=== PATIENT | male | born 1955 | race Caucasian/White ===

== ENCOUNTER 2016-08-29 10:46 | Inpatient (IN) | payer OTHER ==
[2016-08-29 13:04] VITALS: BMI 19.8
--- NOTE | 2016-08-29 13:43 | HP ---
COWS - Scale Resting Pulse: 1= [place] 81-100 Sweatin= Chills/Flushing Restless Observation: 1= Difficult to Sit Still Pupil Size: 1= Pupils >than Normal Bone or Joint Aches: 1= Mild Discomfort Runny Nose/ Eye Tearin= Nasal Congestion GI Upset > 30mins: 2= Nausea/Diarrhea Tremor Observation: 1= Tremor [place], Not Seen Yawning Observation: 0= None Anxiety or Irritability: 2=Irritable/Anxious Goose Flesh Skin: 0=Smooth Skin COWS Score: 11 CIWA Score - CIWA Score Nausea/Vomitin Muscle Tremors: 2 Anxiety: 3 Agitation: 2 Paroxysmal Sweats: 3 Orientation: 0-Oriented Tacttile Disturbances: 1-Very Mild Itch/Numbness Auditory Disturbances: 0-None Visual Disturbances: 0-None Headache: 0-None Present CIWA-Ar Total Score: 14 Admission ROS BHS - HPI Chief Complaint: i need help to get off drugs Allergies/Adverse Reactions: Allergies Allergy/AdvReac Type Severity Reaction Status Date / Time No Known Allergies Allergy Verified 08/29/16 13:29 History of Present Illness: 61 y/o m pt with a h/o heroin dep , chronic etoh and xanax abuse Exam Limitations: No Limitations - Ebola screening Have you traveled outside of the country in the last 21 days: No Have you had contact with anyone from an Ebola affected area: No Have you been sick,other than usual withdrawal symptoms: No Do you have a fever: No - Review of Systems Constitutional: Malaise, Unintentional Wgt. Loss (40 lbs x 1 yr) EENT: reports: Dental Problems (multiple missing teeth) Respiratory: reports: No Symptoms reported Cardiac: reports: No Symptoms Reported GI: reports: Diarrhea : reports: No Symptoms Reported Musculoskeletal: reports: No Symptoms Reported, Other (hand contractures) Integumentary: reports: Other (grafts) Neuro: reports: No Symptoms reported, Weakness Endocrine: reports: No Symptoms Reported Hematology: reports: No Symptoms Reported Psychiatric: reports: No Sypmtoms Reported Other Systems: Reviewed and Negative Patient History - Patient Medical History Hx Anemia: No Hx Asthma: No Hx Chronic Obstructive Pulmonary Disease (COPD): No Hx Cancer: No Hx Cardiac Disorders: No Hx Congestive Heart Failure: No Hx Hypertension: No Hx Hypercholesterolemia: No Hx Pacemaker: No HX Cerebrovascular Accident: No Hx Seizures: No Hx Diabetes: No Hx Gastrointestinal Disorders: No Hx Liver Disease: No Hx Genitourinary Disorders: No Hx Sexually Transmitted Disorders: No Hx Renal Disease (ESRD): No Hx Thyroid Disease: No Hx Human Immunodeficiency Virus (HIV): No (NEGATIVE HX) Hx Hepatitis C: Yes (STARTING TREATMENT AFTER THIS DETOX) Hx Depression: Yes Hx Suicide Attempt: No Hx Bipolar Disorder: No Hx Schizophrenia: No Other Medical History: s/p do with multiple skin grafts - Patient Surgical History Past Surgical History: Yes Hx Neurologic Surgery: No Hx Cataract Extraction: No Hx Cardiac Surgery: No Hx Lung Surgery: No Hx Breast Surgery: No Hx Breast Biopsy: No Hx Abdominal Surgery: No Hx Appendectomy: No Hx Cholecystectomy: No Hx Genitourinary Surgery: No Hx Section: No Hx Orthopedic Surgery: No Other Surgical History: skin grafting/do hands chest and legs in 2006 low back sx in 1999 Anesthesia Reaction: No - PPD History Previous Implant?: Yes Documented Results: Positive w/o proof Implanted On Prior R Admission?: No - Smoking Cessation Smoking history: Current every day smoker Have you smoked in the past 12 months: Yes Aproximately how many cigarettes per day: 20 Hx Chewing Tobacco Use: No Initiated information on smoking cessation: Yes 'Breaking Loose' booklet given: 08/29/16 - Substances Abused Heroin Route: Inhalation Frequency: Daily Amount used: 20 bags Age of first use: 44 Date of Last Use: 08/28/16 Cocaine Route: Inhalation Frequency: Daily Amount used: $20 Age of first use: 44 Date of Last Use: 08/28/16 Alcohol Route: Oral Frequency: Daily Amount used: 1 pint vodka Age of first use: 18 Date of Last Use: 08/28/16 Alprazolam (Xanax) Route: Oral Frequency: 3-6 times per week Amount used: 2mg Age of first use: 44 Date of Last Use: 08/28/16 Family Disease History - Family Disease History Family Disease History: Diabetes: Mother (HTN), Heart Disease: Father ([place]), Mother Admission Physical Exam BHS - Vital Signs Vital Signs: Vital Signs - 24 hr 08/29/16 13:00 Temperature 97.4 F L Pulse Rate 81 Respiratory 18 Rate Blood Pressure 123/72 61 y/o m pt aox3 appearing ill, ambulating but nad , cooperative with exam - Physical General Appearance: Yes: Disheveled HEENTM: Yes: EOMI, Hearing grossly Normal, DIVYA, Rhinorrhea, Muffled/Hoarse Voice, Other (bi-temp wasting) Respiratory: Yes: Chest Non-Tender, Lungs Clear, Normal Breath Sounds, No Respiratory Distress Neck: Yes: Supple Breast: Yes: Surgical Scar (skin grafts well healed) Cardiology: Yes: Regular Rhythm, Regular Rate, S1, S2 Abdominal: Yes: Non Tender, Flat, Soft, Increased Bowel Sounds Genitourinary: Yes: Within Normal Limits Back: Yes: Decreased Range of Motion Musculoskeletal: Yes: Joint Stiffness, Other (contractures) Extremities: Yes: Tremors 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, Fully Oriented, Alert, Depressed Affect Integumentary: Yes: Moist Lymphatic: Yes: Within Normal Limits - Diagnostic (1) Alcohol dependence Current Visit: No Status: Acute (2) Cocaine dependence Current Visit: Yes Status: Chronic Qualifiers: Substance use status: uncomplicated Qualified Code(s): F14.20 - Cocaine dependence, uncomplicated (3) Hepatitis C Current Visit: Yes Status: Chronic Qualifiers: Viral hepatitis chronicity: chronic Hepatic coma status: without hepatic coma Qualified Code(s): B18.2 - Chronic viral hepatitis C (4) Heroin dependence Current Visit: Yes Status: Chronic (5) Depression Current Visit: Yes Status: Chronic Qualifiers: Depression Type: unspecified Qualified Code(s): F32.9 - Major depressive disorder, single episode, unspecified (6) Nicotine dependence Current Visit: Yes Status: Chronic Qualifiers: Nicotine product type: cigarettes Substance use status: uncomplicated Qualified Code(s): F17.210 - Nicotine dependence, cigarettes, uncomplicated (7) H/O skin graft Current Visit: Yes Status: Chronic Cleared for Admission S - Detox or Rehab [facility] Level of Care: Medically Managed Detox Regimen/Protocol: Methadone/Valium S Breath Alcohol Content Breath Alcohol Content: 0 Urine Drug Screen - Results Drug Screen Negative: No Urine Drug Screen Results: FLIP-Cocaine, OPI-Opiates, BZO-Benzodiazepines, MTD- Methadone
[2016-08-29] MEDS ORDERED: MENTHOL/PHENOL 1 EACH UD MM PRN (14:03)
[2016-08-29] MEDS ORDERED: IBUPROFEN 400 MG TABLET (FP) PO PRN (14:03)
[2016-08-29] MEDS ORDERED: MAGNESIUM CITRATE 300 ML BOTTLE PO PRN (14:03)
[2016-08-29] MEDS ORDERED: LOPERAMIDE HCL 2 MG CAPSULE PO PRN (14:03)
[2016-08-29] MEDS ORDERED: MAG HYDROX/AL HYDROX/SIMETH 30 ML UNIT-DOSE CUP PO PRN (14:03)
[2016-08-29] MEDS ORDERED: P-EPHED 60MG/TRIPROLIDI 2.5MG TABLET PO PRN (14:03)
[2016-08-29] MEDS ORDERED: MAGNESIUM HYDROX 2400MG/30ML ORAL SUSPENSION 30 ML CUP PO PRN (14:03)
[2016-08-29] MEDS ORDERED: NICOTINE POLACRILEX 4 MG GUM BUC PRN (14:08)
[2016-08-29] MEDS ORDERED: diazePAM 5 MG TABLET PO ONE (15:20)
[2016-08-29] MEDS ORDERED: METHADONE HCL 10 MG TABLET (FOR DETOX USE ONLY) PO ONE ×2 (15:20→23:00)
[2016-08-29 17:08] LABS: URINE APPEARANCE CLEAR; URINE BILIRUBIN NEGATIVE (NEGATIVE); URINE BLOOD NEGATIVE (NEGATIVE); URINE COLOR YELLOW; URINE GLUCOSE (UA) NEGATIVE (NEGATIVE); URINE KETONE NEGATIVE (NEGATIVE); URINE LEUK ESTERASE NEGATIVE (NEGATIVE); URINE NITRITE NEGATIVE (NEGATIVE); URINE PROTEIN NEGATIVE (NEGATIVE); URINE UROBILINOGEN NEGATIVE E.U./dl (0.2-1.0)
[2016-08-29] MEDS: THIAMINE HCL 100 MG TABLET (FP) PO SCH (22:56)
[2016-08-29] MEDS: diphenhydrAMINE HCL 50 MG CAPSULE PO PRN (22:56)
[2016-08-29] MEDS: diazePAM 5 MG TABLET PO SCH (22:56)
[2016-08-30] MEDS: diazePAM 5 MG TABLET PO SCH ×3 (05:31→22:35)
[2016-08-30 09:30] LABS: MCH 29.6 pg (25.7-33.7); MCHC 33.1 g/dl (32.0-35.9); MEAN CELL VOLUME 89.6 fl (80-96); MEAN PLT VOLUME 9.6 fl (7.5-11.1); PLATELET COUNT 213 K/MM3 (134-434); RDW 14.6 % (11.9-15.9); WHITE BLOOD COUNT 7.8 K/mm3 (4.0-10.0)
[2016-08-30] MEDS ORDERED: METHADONE HCL 10 MG TABLET (FOR DETOX USE ONLY) PO SCH (10:00)
[2016-08-30 10:51] LABS: ALBUMIN 3.1 g/dl (3.4-5.0); ALK PHOS 73 U/L (45-117); ANION GAP 11 (8-16); BILIRUBIN,TOTAL 0.3 mg/dL (0.2-1.0); CALCIUM 8.5 mg/dL (8.5-10.1); CO2 24 mmol/L (21-32); CREATININE 0.8 mg/dL (0.7-1.3); GLUCOSE,RANDOM 81 mg/dL (74-106); SGOT/AST 8 U/L (15-37); SGPT/ALT 11 U/L (12-78); TOT PROT 6.8 g/dl (6.4-8.2)
[2016-08-30] MEDS: NICOTINE 21 MG/24 HOURS TOPICAL PATCH TD SCH (11:08)
[2016-08-30] MEDS: PRENATAL VITAMINS W/ FOLIC ACID TABLET (FP) PO SCH (11:08)
--- NOTE | 2016-08-30 11:21 | PN ---
[facility] CIWA - CIWA Score Nausea/Vomitin-No Nausea/No Vomiting Muscle Tremors: 4-Moderate,w/Arms Extend Anxiety: 4-Mod. Anxious/Guarded Agitation: 3 Paroxysmal Sweats: 3 Orientation: 0-Oriented Tacttile Disturbances: 0-None Auditory Disturbances: 0-None Visual Disturbances: 0-None Headache: 0-None Present CIWA-Ar Total Score: 14 S COWS - Scale Resting Pulse: 0= [place] 80 or Below Sweatin=Flushed/Facial Moisture Restless Observation: 1= Difficult to Sit Still Pupil Size: 0= Normal to Room Light Bone or Joint Aches: 1= Mild Discomfort Runny Nose/ Eye Tearin= Runny Nose/Eyes GI Upset > 30mins: 2= Nausea/Diarrhea Tremor Observation of Outstretched Hands: 2= Slight Tremor Visible Yawning Observation: 1= 1-2x During Session Anxiety or Irritability: 2=Irritable/Anxious Goose Flesh Skin: 0=Smooth Skin COWS Score: 13 [facility] Progress Note (SOAP) Subjective: Anxiety,tremors,sweating,interrupted sleep,restless Objective: 08/30/16 11:20 Vital Signs - 8 hr 08/30/16 08/30/16 06:35 10:40 Temperature 96.0 F L 95.7 F L Pulse Rate 68 75 Respiratory 16 18 Rate Blood Pressure 131/84 128/87 Laboratory Last Values WBC 7.8 K/mm3 (4.0-10.0) 08/30/16 06:20 RBC 4.16 M/mm3 (4.00-5.60) 08/30/16 06:20 Hgb 12.3 GM/dL (11.7-16.9) D 08/30/16 06:20 Hct 37.3 % (35.4-49) 08/30/16 06:20 MCV 89.6 fl (80-96) 08/30/16 06:20 MCHC 33.1 g/dl (32.0-35.9) 08/30/16 06:20 RDW 14.6 % (11.9-15.9) 08/30/16 06:20 Plt Count 213 K/MM3 (134-434) D 08/30/16 06:20 MPV 9.6 fl (7.5-11.1) 08/30/16 06:20 Sodium 140 mmol/L (136-145) 08/30/16 06:20 Potassium 3.8 mmol/L (3.5-5.1) 08/30/16 06:20 Chloride 105 mmol/L (98-107) 08/30/16 06:20 Carbon Dioxide 24 mmol/L (21-32) 08/30/16 06:20 Anion Gap 11 (8-16) 08/30/16 06:20 BUN 12 mg/dL (7-18) 08/30/16 06:20 Creatinine 0.8 mg/dL (0.7-1.3) 08/30/16 06:20 Creat Clearance w eGFR > 60 (>60) 08/30/16 06:20 Random Glucose 81 mg/dL (74-106) 08/30/16 06:20 Calcium 8.5 mg/dL (8.5-10.1) 08/30/16 06:20 Total Bilirubin 0.3 mg/dL (0.2-1.0) D 08/30/16 06:20 AST 8 U/L (15-37) L D 08/30/16 06:20 ALT 11 U/L (12-78) L D 08/30/16 06:20 Alkaline Phosphatase 73 U/L (45-117) 08/30/16 06:20 Total Protein 6.8 g/dl (6.4-8.2) 08/30/16 06:20 Albumin 3.1 g/dl (3.4-5.0) L 08/30/16 06:20 Urine Color Yellow 08/29/16 13:00 Urine Appearance Clear 08/29/16 13:00 Urine pH 7.0 (5.0-8.0) D 08/29/16 13:00 Ur Specific [place] 1.017 (1.001-1.035) 08/29/16 13:00 Urine Protein Negative (NEGATIVE) 08/29/16 13:00 Urine Glucose (UA) Negative (NEGATIVE) 08/29/16 13:00 Urine Ketones Negative (NEGATIVE) 08/29/16 13:00 Urine Blood Negative (NEGATIVE) 08/29/16 13:00 Urine Nitrite Negative (NEGATIVE) 08/29/16 13:00 Urine Bilirubin Negative (NEGATIVE) 08/29/16 13:00 Urine Urobilinogen Negative E.U./dl (0.2-1.0) 08/29/16 13:00 Ur Leukocyte Esterase Negative (NEGATIVE) 08/29/16 13:00 RPR Titer Nonreactive (NONREACTIVE) 08/30/16 06:20 labs noted Assessment: 08/30/16 11:20 Withdrawal sx. Plan: Continue detox
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
--- NOTE | 2016-08-30 16:44 | EKG ---
Test Reason : Blood Pressure : / mmHG Vent. Rate : 055 BPM Atrial Rate : 055 BPM P-R Int : 162 ms QRS Dur : 084 ms QT Int : 448 ms P-R-T Axes : 053 034 060 degrees QTc Int : 428 ms SINUS BRADYCARDIA OTHERWISE NORMAL ECG NO PREVIOUS ECGS AVAILABLE Confirmed by MD KRISTIAN, AMBER ([id number]) on 08/30/2016 4:43:49 PM Referred By: Confirmed By:AMBER TOWNSEND MD
[2016-08-30] MEDS: diphenhydrAMINE HCL 50 MG CAPSULE PO PRN (22:35)
[2016-08-30] MEDS: QUEtiapine FUMARATE 100 MG TABLET (FP) PO SCH (22:35)
[2016-08-30] MEDS: THIAMINE HCL 100 MG TABLET (FP) PO SCH (22:36)
[2016-08-31] MEDS: diazePAM 5 MG TABLET PO PRN (01:12)
[2016-08-31] MEDS: diazePAM 5 MG TABLET PO SCH ×2 (10:27→21:46)
[2016-08-31] MEDS: PRENATAL VITAMINS W/ FOLIC ACID TABLET (FP) PO SCH (10:27)
[2016-08-31] MEDS: QUEtiapine FUMARATE 100 MG TABLET (FP) PO SCH ×2 (10:27→21:46)
[2016-08-31] MEDS: METHADONE HCL 5 MG TABLET (FOR DETOX USE ONLY) PO SCH (10:28)
[2016-08-31] MEDS: NICOTINE 21 MG/24 HOURS TOPICAL PATCH TD SCH (10:28)
--- NOTE | 2016-08-31 12:10 | PN ---
[facility] CIWA - CIWA Score Nausea/Vomitin Muscle Tremors: 3 Anxiety: 3 Agitation: 4-Moderately Restless Paroxysmal Sweats: No Perspiration Orientation: 0-Oriented Tacttile Disturbances: 0-None Auditory Disturbances: 0-None Visual Disturbances: 0-None Headache: 3-Moderate CIWA-Ar Total Score: 16 BHS COWS - Scale Resting Pulse: 0= [place] 80 or Below Sweatin= Chills/Flushing Restless Observation: 1= Difficult to Sit Still Pupil Size: 1= Pupils >than Normal Bone or Joint Aches: 2= Severe Diffuse Aches Runny Nose/ Eye Tearin= Runny Nose/Eyes GI Upset > 30mins: 1= Stomach Cramp Tremor Observation of Outstretched Hands: 1= Tremor [place], Not Seen Yawning Observation: 1= 1-2x During Session Anxiety or Irritability: 2=Irritable/Anxious Goose Flesh Skin: 0=Smooth Skin COWS Score: 12 S Progress Note (SOAP) Subjective: Restlessness, Anxiety, Body aches, nausea, interrupted sleep Objective: Vital Signs Temperature 97 F L 08/31/16 09:54 Pulse Rate 84 08/31/16 09:54 Respiratory Rate 18 08/31/16 09:54 Blood Pressure 121/85 08/31/16 09:54 O2 Sat by Pulse Oximetry (%) Laboratory Last Values WBC 7.8 K/mm3 (4.0-10.0) 08/30/16 06:20 RBC 4.16 M/mm3 (4.00-5.60) 08/30/16 06:20 Hgb 12.3 GM/dL (11.7-16.9) D 08/30/16 06:20 Hct 37.3 % (35.4-49) 08/30/16 06:20 MCV 89.6 fl (80-96) 08/30/16 06:20 MCHC 33.1 g/dl (32.0-35.9) 08/30/16 06:20 RDW 14.6 % (11.9-15.9) 08/30/16 06:20 Plt Count 213 K/MM3 (134-434) D 08/30/16 06:20 MPV 9.6 fl (7.5-11.1) 08/30/16 06:20 Sodium 140 mmol/L (136-145) 08/30/16 06:20 Potassium 3.8 mmol/L (3.5-5.1) 08/30/16 06:20 Chloride 105 mmol/L (98-107) 08/30/16 06:20 Carbon Dioxide 24 mmol/L (21-32) 08/30/16 06:20 Anion Gap 11 (8-16) 08/30/16 06:20 BUN 12 mg/dL (7-18) 08/30/16 06:20 Creatinine 0.8 mg/dL (0.7-1.3) 08/30/16 06:20 Creat Clearance w eGFR > 60 (>60) 08/30/16 06:20 Random Glucose 81 mg/dL (74-106) 08/30/16 06:20 Calcium 8.5 mg/dL (8.5-10.1) 08/30/16 06:20 Total Bilirubin 0.3 mg/dL (0.2-1.0) D 08/30/16 06:20 AST 8 U/L (15-37) L D 08/30/16 06:20 ALT 11 U/L (12-78) L D 08/30/16 06:20 Alkaline Phosphatase 73 U/L (45-117) 08/30/16 06:20 Total Protein 6.8 g/dl (6.4-8.2) 08/30/16 06:20 Albumin 3.1 g/dl (3.4-5.0) L 08/30/16 06:20 Urine Color Yellow 08/29/16 13:00 Urine Appearance Clear 08/29/16 13:00 Urine pH 7.0 (5.0-8.0) D 08/29/16 13:00 Ur Specific [place] 1.017 (1.001-1.035) 08/29/16 13:00 Urine Protein Negative (NEGATIVE) 08/29/16 13:00 Urine Glucose (UA) Negative (NEGATIVE) 08/29/16 13:00 Urine Ketones Negative (NEGATIVE) 08/29/16 13:00 Urine Blood Negative (NEGATIVE) 08/29/16 13:00 Urine Nitrite Negative (NEGATIVE) 08/29/16 13:00 Urine Bilirubin Negative (NEGATIVE) 08/29/16 13:00 Urine Urobilinogen Negative E.U./dl (0.2-1.0) 08/29/16 13:00 Ur Leukocyte Esterase Negative (NEGATIVE) 08/29/16 13:00 RPR Titer Nonreactive (NONREACTIVE) 08/30/16 06:20 Hepatitis C Antibody >11.0 s/co ratio (0.0-0.9) H 08/30/16 06:20 labs noted Assessment: withdrawal symptoms Plan: Continue Detox
[2016-08-31] MEDS: guaiFENesin/D-METHORPHAN HB 10 ML UNIT-DOSE CUPS PO PRN ×2 (12:43→21:46)
[2016-08-31] MEDS: ACETAMINOPHEN 325 MG TABLET (FP) PO PRN (17:51)
[2016-08-31] MEDS: THIAMINE HCL 100 MG TABLET (FP) PO SCH (21:46)
[2016-09-01] MEDS: diazePAM 5 MG TABLET PO PRN (02:47)
[2016-09-01] MEDS: METHADONE HCL 5 MG TABLET (FOR DETOX USE ONLY) PO SCH (10:08)
[2016-09-01] MEDS: diazePAM 5 MG TABLET PO SCH ×2 (10:08→21:12)
[2016-09-01] MEDS: QUEtiapine FUMARATE 100 MG TABLET (FP) PO SCH ×2 (10:08→21:12)
[2016-09-01] MEDS: NICOTINE 21 MG/24 HOURS TOPICAL PATCH TD SCH (10:08)
[2016-09-01] MEDS: PRENATAL VITAMINS W/ FOLIC ACID TABLET (FP) PO SCH (10:08)
--- NOTE | 2016-09-01 15:32 | PN ---
S Progress Note (SOAP) Subjective: Abdominal pain, nausea, sweating, diarrhea, interrupted sleep Objective: 09/01/16 15:31 Last Vital Signs Temp Pulse Resp BP Pulse Ox 97.0 F L 90 20 120/87 09/01/16 13:27 09/01/16 13:27 09/01/16 13:27 09/01/16 13:27 Laboratory Tests 08/29/16 08/30/16 08/30/16 13:00 06:20 06:20 WBC 7.8 RBC 4.16 Hgb 12.3 D Hct 37.3 MCV 89.6 MCHC 33.1 RDW 14.6 Plt Count 213 D MPV 9.6 Sodium Potassium Chloride Carbon Dioxide Anion Gap BUN Creatinine Creat Clearance w eGFR Random Glucose Calcium Total Bilirubin AST ALT Alkaline Phosphatase Total Protein Albumin Urine Color Yellow Urine Appearance Clear Urine pH 7.0 D Ur Specific [place] 1.017 Urine Protein Negative Urine Glucose (UA) Negative Urine Ketones Negative Urine Blood Negative Urine Nitrite Negative Urine Bilirubin Negative Urine Urobilinogen Negative Ur Leukocyte Esterase Negative RPR Titer Hepatitis C Antibody >11.0 H 08/30/16 08/30/16 06:20 06:20 WBC RBC Hgb Hct MCV MCHC RDW Plt Count MPV Sodium 140 Potassium 3.8 Chloride 105 Carbon Dioxide 24 Anion Gap 11 BUN 12 Creatinine 0.8 Creat Clearance w eGFR > 60 Random Glucose 81 Calcium 8.5 Total Bilirubin 0.3 D AST 8 L D ALT 11 L D Alkaline Phosphatase 73 Total Protein 6.8 Albumin 3.1 L Urine Color Urine Appearance Urine pH Ur Specific [place] Urine Protein Urine Glucose (UA) Urine Ketones Urine Blood Urine Nitrite Urine Bilirubin Urine Urobilinogen Ur Leukocyte Esterase RPR Titer Nonreactive Hepatitis C Antibody Labs noted Assessment: 09/01/16 15:31 Withdrawal symptoms Plan: Continue detox
[2016-09-01] MEDS: ACETAMINOPHEN 325 MG TABLET (FP) PO PRN (21:11)
[2016-09-01] MEDS: THIAMINE HCL 100 MG TABLET (FP) PO SCH (22:00)
[2016-09-01] MEDS ORDERED: ZOLPIDEM TARTRATE 10 MG TABLET (PARK CARE ONLY) PO PRN (22:00)
[2016-09-02] MEDS: ACETAMINOPHEN 325 MG TABLET (FP) PO PRN ×2 (03:20→07:59)
[2016-09-02 09:49] VITALS: BP 113/80; PULSE 87; TEMP 97.6
[2016-09-02] MEDS ORDERED: QUEtiapine FUMARATE 100 MG TABLET (FP) PO SCH (10:00)
[2016-09-02] MEDS ORDERED: METHADONE HCL 5 MG TABLET (FOR DETOX USE ONLY) PO SCH (10:00)
[2016-09-02] MEDS ORDERED: METHADONE HCL 10 MG TABLET (FOR DETOX USE ONLY) PO SCH (10:00)
[2016-09-02] MEDS ORDERED: diazePAM 5 MG TABLET PO SCH (10:00)
--- NOTE | 2016-09-02 12:22 | DS ---
[facility] Detox Discharge Summary Admission Date: 08/29/16 Discharge Date: 09/02/16 - History Present History: Alcohol Dependence, Cocaine Dependence, Opioid Dependence Pertinent Past History: Hep C Skin graft - Physical Exam Results Vital Signs: Vital Signs Temperature 97.6 F 09/02/16 09:48 Pulse Rate 87 09/02/16 09:48 Respiratory Rate 18 09/02/16 09:48 Blood Pressure 113/80 09/02/16 09:48 O2 Sat by Pulse Oximetry (%) Pertinent Admission Physical Exam Findings: Withdrawal sx. Laboratory Tests 08/29/16 08/30/16 08/30/16 13:00 06:20 06:20 WBC 7.8 RBC 4.16 Hgb 12.3 D Hct 37.3 MCV 89.6 MCHC 33.1 RDW 14.6 Plt Count 213 D MPV 9.6 Sodium Potassium Chloride Carbon Dioxide Anion Gap BUN Creatinine Creat Clearance w eGFR Random Glucose Calcium Total Bilirubin AST ALT Alkaline Phosphatase Total Protein Albumin Urine Color Yellow Urine Appearance Clear Urine pH 7.0 D Ur Specific [place] 1.017 Urine Protein Negative Urine Glucose (UA) Negative Urine Ketones Negative Urine Blood Negative Urine Nitrite Negative Urine Bilirubin Negative Urine Urobilinogen Negative Ur Leukocyte Esterase Negative RPR Titer Hepatitis C Antibody >11.0 H 08/30/16 08/30/16 06:20 06:20 WBC RBC Hgb Hct MCV MCHC RDW Plt Count MPV Sodium 140 Potassium 3.8 Chloride 105 Carbon Dioxide 24 Anion Gap 11 BUN 12 Creatinine 0.8 Creat Clearance w eGFR > 60 Random Glucose 81 Calcium 8.5 Total Bilirubin 0.3 D AST 8 L D ALT 11 L D Alkaline Phosphatase 73 Total Protein 6.8 Albumin 3.1 L Urine Color Urine Appearance Urine pH Ur Specific [place] Urine Protein Urine Glucose (UA) Urine Ketones Urine Blood Urine Nitrite Urine Bilirubin Urine Urobilinogen Ur Leukocyte Esterase RPR Titer Nonreactive Hepatitis C Antibody labs noted - Treatment Hospital Course: Detox Protocol Followed, Detoxed Safely, Responded well, Discharged Condition Good - Medication Discharge Medications: Ambulatory Orders NK [No Known Home Medication] 08/29/16 - Diagnosis (1) Cocaine dependence Status: Acute Qualifiers: Substance use status: uncomplicated Qualified Code(s): F14.20 - Cocaine dependence, uncomplicated (2) Nicotine dependence Status: Acute Qualifiers: Nicotine product type: cigarettes Substance use status: uncomplicated Qualified Code(s): F17.210 - Nicotine dependence, cigarettes, uncomplicated (3) Bipolar disorder Status: Chronic (4) Hepatitis C Status: Chronic Qualifiers: Viral hepatitis chronicity: chronic Hepatic coma status: without hepatic coma Qualified Code(s): B18.2 - Chronic viral hepatitis C (5) Opioid dependence with withdrawal Status: Acute (6) Alcohol dependence with uncomplicated withdrawal Status: Acute - AMA Did Patient Leave Against Medical Advice: No
[2016-09-02] MEDS ORDERED: QUEtiapine FUMARATE 200 MG TABLET PO SCH (22:00)
[2016-09-03] MEDS ORDERED: METHADONE HCL 5 MG TABLET (FOR DETOX USE ONLY) PO SCH (06:00)
== END 2016-09-02 09:48 | disposition home or self-care (01) | DRG 897 ==
LOC: YASAS 10:46 → Y3N 14:48
PROVIDERS: ADMIT Internal Medicine; ATTEND Internal Medicine
PROC: HZ2ZZZZ Detoxification Services for Substance Abuse Treatment (ICD-10-PCS; principal; 2016-09-02)
DX: F11.23 Opioid dependence with withdrawal (principal); F13.20 Sedative, hypnotic or anxiolytic dependence, uncomplicated; F14.20 Cocaine dependence, uncomplicated; F10.20 Alcohol dependence, uncomplicated; F17.210 Nicotine dependence, cigarettes, uncomplicated; F31.9 Bipolar disorder, unspecified; B18.2 Chronic viral hepatitis C
CPT/HCPCS: 36415; 71020-TC; 80053; 81003; 85027; 86593; 87522; 93005; 93010